=== PATIENT | female | born 1955 | race Caucasian/White ===

== ENCOUNTER 2016-12-26 20:08 | Inpatient (IN) | payer BC, OTHER ==
[~2016-12-26] VITALS: Ht 157.5 cm; Wt 120.7 kg
--- NOTE | ~2016-12-26 | EKG ---
[address] [place] [address] ELECTROCARDIOGRAM REPORT Name: SAPPHIRE SOTO Room #: 308-P ADM IN M.R.#: [id number] Admission: 12/26/16 Attend Phys: Parker Mcnally MD Discharge: Date of : 55 Report #: [id number] THIS REPORT FOR: //name// [facility] ED Test Date: 2016-12-26 Test Time: 20:14:00 Pat Name: SAPPHIRE SOTO Department: Room: 308 Gender: F Application Consultant: JOHNNIE : 1955 Requested By: Gina Lind Order Number: [id number] MD: New Ardon Measurements Intervals [place] Rate: 72 P: 25 AK: 185 QRS: 12 QRSD: 90 T: 47 QT: 386 QTc: 423 Interpretive Statements Sinus rhythm No significant abnormality No previous ECG available for comparison Electronically Signed On 12-28-2016 9:55:09 CDT by New Ardon [email or web address] <ELECTRONICALLY SIGNED> By: New Ardon MD, [facility] 12/28/16 0955 13 13 New Ardon MD, FACC /EPI
--- NOTE | ~2016-12-26 | 2DMMODE ---
[facility] [address] [place] [address] 2 D/M-MODE ECHOCARDIOGRAM Name: SAPPHIRE SOTO Room #: 308-P [facility] IN .R.#: [id number] Admission: 12/26/16 Attend Phys: Crow Carrizales Discharge: Date of : 55 Date of Service: 12/27/16 1609 Report #: [id number] THIS REPORT FOR: //name// APPROVED REPORT Study performed: 12/27/2016 14:58:07 EXAM: Comprehensive 2D, Doppler, and color-flow Echocardiogram Patient Location: Echo lab Room #: 308 Status: routine BSA: 2.16 BP: 119/71 mmHg Other Information Study Quality: Adequate Indications Chest Pain Hypertension/HDD 2D Dimensions RVDd: 36.26 mm LVEF(%): 75.22 (>50%) IVSd: 12.90 (7-11mm) LVOT Diam: 20.39 (18-24mm) LVDd: 39.80 mm PWd: 11.81 (7-11mm) Ascending Ao: 31.85 (22-36mm) LVDs: 22.50 (25-40mm) Aortic Root: 26.69 mm IVC: 16.00 mm Packer's LVEF: 75.22 % Volumes Left Atrial Volume (Systole) Single Plane 4CH: 53.60 mL Single Plane 2CH: 70.04 mL LA ESV Index: 32.00 mL/m2 Aortic Valve AoV Peak Malik.: 1.79 m/s AO Peak Gr.: 12.87 mmHg LVOT Max P.34 mmHg LVOT Max V: 1.16 m/s MICHELLE Vmax: 2.10 cm2 Mitral Valve E/A Ratio: 0.8 MV Decel. Time: 269.23 ms [facility] [place] [address] 2 D/M-MODE ECHOCARDIOGRAM Name: SAPPHIRE SOTO Room #: [address] [place] [address] IN ..#: [id number] Admission: 12/26/16 Attend Phys: Crow Carrizales Discharge: Date of : 55 Date of Service: 12/27/16 1609 Report #: [id number] MV E Max Malik.: 0.73 m/s MV A Malik.: 0.91 m/s MV PHT: 78.08 ms IVRT: 103.81 ms Pulmonary Valve PV Peak Malik.: 1.09 m/s PV Peak Gr.: 4.75 mmHg Pulmonary Vein P Vein S: 0.73 m/s P Vein A: 0.22 m/s P Vein D: 0.58 m/s P Vein A Dur.: 117.6 msec P Vein S/D Ratio: 1.26 Tricuspid Valve TR Peak Malik.: 2.82 m/s RAP Estimate: 5.00 mmHg TR Peak Gr.: 31.89 mmHg Left Ventricle The left ventricle is normal size. There is normal left ventricular wall thickness. The left ventricular systolic function is normal. The left ventricular ejection fraction is within the normal range. LVEF is 60%. Mild diastolic dysfunction is present (impaired relaxation pattern). Right Ventricle The right ventricle is normal size. The right ventricular systolic function is normal. Atria Left atrium is mildly dilated. The right atrium size is normal. Aortic Valve The aortic valve is normal in structure. Mild aortic regurgitation. There is no aortic valvular stenosis. Mitral Valve The mitral valve is normal in structure. Mild mitral regurgitation. No evidence of mitral valve stenosis. Tricuspid Valve The tricuspid valve is normal in structure. There is trace tricuspid regurgitation. The right atrial pressure is estimated at 5 mmHg. PAP is estimated at 37 mmHg. Pulmonic Valve [address] [address] 2 D/M-MODE ECHOCARDIOGRAM Name: SAPPHIRE SOTO Room #: 308-P [facility] IN [facility]#: [id number] Admission: 12/26/16 Attend Phys: Crow Carrizales Discharge: Date of : 55 Date of Service: 12/27/16 1609 Report #: [id number] The pulmonary valve is normal in structure. Trace pulmonic regurgitation. Great Vessels The aortic root is normal in size. IVC is normal in size and collapses >50% with inspiration. <Conclusion> The left ventricle is normal size. LVEF is 60%. Left atrium is mildly dilated. The aortic valve is normal in structure. Mild aortic regurgitation. The mitral valve is normal in structure. Mild mitral regurgitation. The tricuspid valve is normal in structure. There is trace tricuspid regurgitation. The right atrial pressure is estimated at 5 mmHg. PAP is estimated at 37 mmHg. The pulmonary valve is normal in structure. Trace pulmonic regurgitation. <ELECTRONICALLY SIGNED> By: Wilbur Ellis MD 12/27/16 1609 1609 1609 Wilbur Ellis MD /INF
--- NOTE | ~2016-12-26 | EKG ---
[address] [facility] [place] [address] ELECTROCARDIOGRAM REPORT Name: SAPPHIRE SOTO Room #: 308-P ADM IN M.R.#: [id number] Admission: 12/26/16 Attend Phys: Parker Mcnally MD Discharge: Date of : 55 Report #: [id number] THIS REPORT FOR: //name// [facility] Test Date: 2016-12-27 Test Time: 07:22:18 Pat Name: SAPPHIRE SOTO Department: Room: 308 Gender: F Reading Intervention Teacher: ANGLE : 1955 Requested By: [place] Sellers Order Number: [id number] MD: New Ardon Measurements Intervals [place] Rate: 66 P: 80 WI: 177 QRS: 20 QRSD: 100 T: 55 QT: 412 QTc: 432 Interpretive Statements Sinus rhythm No significant abnormality No previous ECG available for comparison Electronically Signed On 12-28-2016 10:04:10 CDT by New Ardon [email or web address] <ELECTRONICALLY SIGNED> By: New Ardon MD, [facility] 12/28/16 1004 0722 0722 New Ardon MD, FACC /EPI
[2016-12-26 20:12] VITALS: BP 119/83
[2016-12-26 20:36] LABS: ABSOLUTE NEUTROPHILS 5.2 thou/uL (1.4-8.2); BASOPHILS 0.4 % (0.0-2.0); EOSINOPHILS 1.6 % (0.0-3.0); HEMATOCRIT 35.8 % (37.0-47.0); HEMOGLOBIN 12.1 gm/dL (12.0-15.0); LYMPHOCYTES 20.6 % (24.0-44.0); MCH 28.7 pg (26.0-34.0); MCHC 33.8 g/dL (28.0-37.0); MCV 84.9 fL (80.0-100.0); PLATELET COUNT 222 thou/uL (150-400); POLYS 69.4 % (36.0-66.0); RBC 4.22 mil/uL (4.20-5.00); RDW 15.2 % (10.5-14.5); WBC 7.5 thou/uL (4.0-11.0)
[2016-12-26 20:37] LABS: MANUAL DIFF NO
[2016-12-26 20:43] LABS: ANION GAP 7 mmol/L (7-16); BUN 13 mg/dL (7-18); CALCIUM 8.6 mg/dL (8.5-10.1); CHLORIDE 107 mmol/L (98-107); CO2 31 mmol/L (21-32); GLUCOSE 95 mg/dL (74-106); POTASSIUM 3.9 mmol/L (3.5-5.1); SODIUM 145 mmol/L (136-145)
[2016-12-26 20:52] LABS: TROPONIN-I < 0.04 ng/mL (<0.04-0.07)
[2016-12-26] MEDS ORDERED: ALDACTONE25 MG PO (20:56)
[2016-12-26] MEDS ORDERED: WELLBUTRIN XL150 MG PO (20:56)
[2016-12-26] MEDS ORDERED: LYRICA 75 MG CA75 MG PO (20:57)
[2016-12-26] MEDS ORDERED: LYRICA 50 MG50 MG PO (20:57)
[2016-12-26] MEDS ORDERED: DIOVAN320 MG PO (20:58)
[2016-12-26] MEDS ORDERED: FUROSEMIDE 20 M20 MG GT (20:58)
[2016-12-26] MEDS ORDERED: PREVACID30 MG PO (20:59)
[2016-12-26] MEDS ORDERED: NORVASC5 MG PO (20:59)
[2016-12-26 21:25] VITALS: BP 124/85
[2016-12-26 21:43] VITALS: BP 125/86
[2016-12-27 02:51] LABS: CHOLESTEROL 166 mg/dL (<200); HDL CHOLESTEROL 48 mg/dL (>40); LDL CHOLESTEROL 101 mg/dL (<100); TC:HDL 3.5 Ratio (Not establshd); TRIGLYCERIDE 88 mg/dL (<150); TROPONIN-I < 0.04 ng/mL (<0.04-0.07); VLDL 18 mg/dL (<40)
[2016-12-27 02:55] LABS: SERUM ASSESSMENT Clear
[2016-12-27 04:26] VITALS: BP 126/76
[2016-12-27 08:40] VITALS: BP 119/71
[2016-12-27 15:40] VITALS: BP 126/54
[2016-12-27 19:25] VITALS: BP 115/72
[2016-12-28 03:57] VITALS: BP 113/71
[2016-12-28 08:00] VITALS: BP 111/61
[2016-12-28] MEDS ORDERED: IBUPROFEN 400400 M2 PO (14:45)
[2016-12-28 14:55] VITALS: BP 111/61
== END 2016-12-28 15:12 | disposition home or self-care (01) | DRG 313 ==
LOC: ER 20:08 → 3N 20:57 → EROBS 20:57 → 3N 21:05
PROVIDERS: Emergency Medicine; Nurse Practitioner Acute Care
DX: R07.89 Other chest pain (principal); Z68.42 Body mass index [BMI] 45.0-49.9, adult; I10 Essential (primary) hypertension; G47.33 Obstructive sleep apnea (adult) (pediatric); F32.9 Major depressive disorder, single episode, unspecified; M48.00 Spinal stenosis, site unspecified; E66.9 Obesity, unspecified; Z82.49 Family history of ischemic heart disease and other diseases of the circulatory system; Z87.891 Personal history of nicotine dependence; Z79.899 Other long term (current) drug therapy; Z88.0 Allergy status to penicillin; Z88.8 Allergy status to other drugs, medicaments and biological substances; Z90.49 Acquired absence of other specified parts of digestive tract; Z98.84 Bariatric surgery status
CPT/HCPCS: 10096